=== PATIENT | male | born 1945 | race Caucasian/White ===

== ENCOUNTER 2019-06-15 05:56 | Day surgery (SDC) | payer MEDICARE, OTHER, SELFPAY ==
[2019-06-07 12:00] VITALS: BMI 36.3
[2019-06-15] VITALS (10 sets, daily range): BP systolic 100–130; BP diastolic 50–68; PULSE 57–62; RESP 12–19; TEMP 35.9–36.9; O2SAT 94–98; BMI 36.3
[2019-06-15] MEDS: ACETAMINOPHEN 325 MG TABLET 975 MG PO (07:04)
[2019-06-15] MEDS: CELECOXIB 200 MG CAPSULE PO (07:04)
[2019-06-15] MEDS: VANCOMYCIN 1,000 MG/200 ML PIGGYBACK 200 MG IV (07:04)
[2019-06-15] MEDS: LACTATED RINGERS 1,000 ML 42 ML IV (07:10)
--- NOTE | 2019-06-15 07:45 | PM.PREOP ---
Pre-operative Note Interval Note History & Physical reviewed/Exam performed by Physician: Yes Changes to H&P: No
--- NOTE | 2019-06-15 07:45 | PM.OP.1 ---
Operative Date/Time/Diagnoses Date of procedure: 06/15/19 Time of procedure: 07:59 Pre-op diagnosis: left knee OA Post-op diagnosis: same Procedure & Clinicians Procedure: Left knee medial unicompartment arthroplasty Same procedure as scheduled: Yes Indications: The patient has had progressively worsening left knee pain with radiographic changes consistent with arthritis. Non-operative management has failed and the patient has requested medial unicompartment knee replacement. The risks, benefits and alternatives to surgery were discussed with the patient prior to proceeding. Risks discussed included, but were not limited to, failure to relieve pain, stiffness, infection, nerve damage, deep venous thrombosis, pulmonary embolism, stroke, coma, heart attack, permanent paralysis and , as well as the potential need for eventual revision of the prosthetic. Surgeon: Felisa Nugent Court Transcriber: Rex Molina Anesthesia Type: General and Peripheral nerve block Operative Notes Findings: Severe medial unicompartment arthritis, adequate stability Closure Type: primary Specimen(s): none sent Prosthetic devices, grafts, tissues, transplants, or devices: Nugent and Nephew ZUK size D femur, size 3 tibia, +8 poly Estimated Blood Loss (mL): 250 Blood products transfused: none Tourniquet time (min): 15 Procedure in detail: The patient was seen in the pre-operative area, where the left knee was identified as the operative site and this was marked with my initials. The patient received pre-operative antibiotics, and was taken to the operating room and placed on the operative table in the supine position. After satisfactory anesthesia, a wildlife enforcement major out was performed. The left leg was encircled with a tourniquet about the proximal thigh, and the leg was prepared from the toes to the tourniquet with ChloroPrep in the usual fashion and draped through sterile drapes. The leg was elevated and exsanguinated with Eschmark bandage and the tourniquet inflated to [250] mmHg pressure. The knee was approached through an approximately 10 cm incision medial parapatella incision and carried into the knee through a medial parapatellar arthrotomy. The osteophytes and medial meniscus were removed. Next, a small amount of the anterior tibial boss was carefully resected with a saw. The tourniquet was functioning as a venous tourniquet and so was deflated. There was minimal bleeding. The guide was placed along the medial joint line. It was meticulously adjusted to make sure there was appropriate slope that it was at the joint line and then was pinned to the tibia and the femur. The medial femoral condylar cut was made in extension. The tibial cut was made in flexion. The bone was meticulously irrigated with normal saline. Small amount of additional meniscus was resected posterior capsule was checked and injected with Marcaine. The extension gap was carefully checked with an 8 mm gap laboratory veterinarian was noted that it fit well. A small number of additional osteophytes were resected. The tibia was a size [3]. It was noted that it fit without overhang. The femur was sized and it was noted to be a [D]. The appropriate cutting guide was pinned into place and carefully positioned on the femoral condyle. Drill holes were placed. The tibia was pinned into place and drill holes were made. Trial reduction with the appropriate poly showed full range of motion and good stability at 0, 45. and 90? with normal tracking of the components without edge loading. The bone was meticulously irrigated and dried. Additional Marcaine was injected. The posterior capsule was injected with 0.25% Marcaine mixed with 20 ml Exparel for post-operative pain control. The remainder of this mixture was injected into the capsule and subcutaneous tissues during cement curing. Range of motion was [0-130], with good stability throughout the range. The trials were then remove. The cement was as applied and the final prosthetics placed. Excess cement was removed during and after cement curing. A brief medial compartment Betadine soak was performed. After confirming there was no extruded cement posteriorly, the final tibial insert was placed. The knee was copiously irrigated and the tourniquet deflated. Hemostasis was obtained. The capsule was closed with interrupted vicryl. The subcutaneous tissue was closed with barbed sutures. The skin with a running 3-0 V-Lock suture and surgical glue. An Aquacel Ag dressing was applied and the patient was taken to recovery having tolerated the procedure well. Complications: none Post-operative Condition: stable Disposition: Acute Care Plan for aftercare: The patient will be maintained on a standard medial Uni knee replacement protocol with weight bearing as tolerated. The patient will receive aspirin and sequential compression devices for DVT prophylaxis. The patient will be discharged home when safe for the home environment.
[2019-06-15] MEDS: CEFAZOLIN 2 GM/100 ML FROZ.PIGGY IV (07:59)
--- NOTE | 2019-06-15 08:01 | SUR.PREOP ---
Block start time [0746] . Monitoring initiated and maintained throughout procedure. Oxygen and medications given by anesthesiologist. Patient remained stable throughout procedure, no adverse reactions noted. Block end time [0755].
--- NOTE | 2019-06-15 08:33 | SUR.OPER ---
Supine on padded OR bed, head on pillow, arms secured on padded arm boards at <90 degrees abduction, legs uncrossed, safety belt at thigh, tape over blanket over lower legs.
[2019-06-15] MEDS: BUPIVACAINE LIPOSOME 266 MG/20 ML VIAL INJ (08:39)
[2019-06-15] MEDS: BUPIVACAINE 0.25% W/ EPI 30 ML VIAL INJ (08:39)
--- NOTE | 2019-06-15 09:34 | P.PCN_ITS ---
Procedures Date/Time Date of procedure: 06/15/19 Time of procedure: 07:45 General Procedure description: Ultrasound guided adductor canal nerve block for post op pain control after left uni medial knee arthroplasty by Dr. Nugent. Risk and rosita efits of procedure discussed with patient. ASA monitoring applied to patient. O2 given via nasal cannula. 1 mg Versed and 50 mcg fentanyl given for procedural sedation. Skin site was prepped with chlorhexidine and allowed to fully dry. Sterile gloves, mask, hat and probe cover were used to maintain sterility. 2% lidocaine and 30ga needle was used to make a small skin wheal at needle insertion site. Under ultrasound guidance, a 21ga 100mm Pajunk needle was directed into the adductor canal near femoral artery and saphenous nerve at the level of mid thigh. Patient reported no parasthesias. After negative aspiration, 20 mL 0.5% ropivicaine and 10mg dexamethasone were injected around saphenous ne rve. Patient tolerated procedure well.
[2019-06-15] MEDS: ONDANSETRON 4 MG/2 ML INJ IV (10:06)
--- NOTE | 2019-06-15 10:11 | SUR.PHASEI ---
Patient able to move toes, lift leg. Gave Zofran for c/o nausea.
[2019-06-15] MEDS: OXYCODONE/ACETAMINOPHEN 5/325 TABLET 1 TAB PO (10:36)
--- NOTE | 2019-06-15 10:43 | DI.RAD.S_ITS ---
PROCEDURE: XR KNEE LT 1TO2V INDICATIONS: post uni knee TECHNIQUE: 2 view(s) of the knee acquired. COMPARISON: None. FINDINGS: Bones: Patient is status post left knee joint medial unicompartmental hemiarthroplasty. Hardware components are in expected positions. Visualized bony structures are intact. Soft tissues: Overlying postoperative changes are noted. IMPRESSION: Normal alignment after a left medial unicompartmental hemiarthroplasty. Dictated by: Pedro Miller M.D. on 06/15/2019 at 11:19 Approved by: Pedro Miller M.D. on 06/15/2019 at 11:19
[2019-06-15] MEDS: OXYCODONE IR 5 MG TABLET PO (11:35)
== END 2019-06-15 12:01 | disposition home or self-care (01) ==
PROVIDERS: PCP Internal Medicine; Visit Provider Orthopaedic Surgery
PROC: (CPT 27446; principal; 2019-06-15 07:45)
DX: M17.12 Unilateral primary osteoarthritis, left knee (principal); G89.18 Other acute postprocedural pain; G47.33 Obstructive sleep apnea (adult) (pediatric)
CPT/HCPCS: 27446; 64450; 73560; C1776; C9290; J0690; J1100; J1885; J2250; J2405; J2704; J3010

== ENCOUNTER → 2020-02-20 16:36 | Outpatient (CLI) | payer MEDICARE, OTHER, SELFPAY ==
[2020-02-20 17:10] LABS: Add Manual Diff / Slide Review NO; Basophils Absolute Auto 0 /uL (0-100); Basophils Percent Auto 0.6 % (0-2); Eosinophils Absolute Auto 100 /uL (0-450); Eosinophils Percent Auto 1.8 % (2-4); Hematocrit 35.7 % (41-53); Hemoglobin 12.3 g/dL (13.5-17.5); Lymphocytes Absolute Auto 1200 /uL (1100-4500); Lymphocytes Percent Auto 20.1 % (25-40); Mean Corpuscular HGB Conc 34.4 % (30-36); Mean Corpuscular Hemoglobin 34.1 PG (26-34); Monocytes Absolute Auto 700 /uL (0-900); Monocytes Percent Auto 11.7 % (3-14); Neutrophils Absolute Auto 4100 /uL (1500-7000); Neutrophils Percent Auto 65.8 % (50-75); Platelet Count 171 X10^3/uL (150-400); Red Blood Cell Count 3.61 X10^6/uL (4.5-5.9); Red Cell Distribution Width 14.6 % (11.6-14.8); White Blood Cell Count 6.2 X10^3/uL (4.5-11.0)
[2020-02-20 17:18] LABS: Hemoglobin A1C% w Est Avg Glu 5.6 % (4.0-6.0)
[2020-02-20 17:31] LABS: BUN Creatinine Ratio 20.2 (6-22); Blood Urea Nitrogen 33 mg/dL (9-20); Calcium 8.9 mg/dL (8.4-10.2); Carbon Dioxide 27 mmol/L (22-32); Chloride 104 mmol/L (98-107); Estimated Glomerular Filt Rate 41.3 mL/min (>60); Glucose 96 mg/dL (80-110); HEMOLYSIS < 15 (0-50); Potassium 4.4 mmol/L (3.4-5.1); Sodium 138 mmol/L (137-145)
== END ==
PROVIDERS: PCP Internal Medicine; Referring Provider Orthopaedic Surgery; Visit Provider Orthopaedic Surgery
DX: Z01.818 Encounter for other preprocedural examination (principal); Z01.812 Encounter for preprocedural laboratory examination; R73.9 Hyperglycemia, unspecified
CPT/HCPCS: 36415; 80048; 83036; 85025; 93005

== ENCOUNTER → 2020-02-25 13:45 | Outpatient (CLI) | payer MEDICARE, OTHER, SELFPAY ==
[2020-02-26 13:47] LABS: COVID19 Sendout Not Detected (Not Detect)
== END ==
PROVIDERS: PCP Internal Medicine; Visit Provider Physician Assistant
DX: Z11.59 Encounter for screening for other viral diseases (principal)
CPT/HCPCS: 87635

== ENCOUNTER → 2020-02-27 06:37 | Outpatient (CLI) | payer MEDICARE, OTHER, SELFPAY ==
--- NOTE | 2020-02-27 07:12 | DI.ECHO.S_ITS ---
Echocardiogram Report + + :Name: MAGALI OSEI Study Date: 02/27/2020 Height: 66 in : :[facility] Weight: 204 lb : : Gender: Male BSA: 2.0 m2 : :: 1945 Age: 74 yrs BP: 100/60 mmHg: :Reason For Study: AORTIC STENOSIS : :Ordering Physician: LAUREN, : :CARLOS ALBERTO Performed By: Karla Diez : :Referring: CARLOS ALBERTO AGUILAR : + + Interpretation Summary The left ventricular ejection fraction is normal. There are no focal wall motion abnormalities. The right ventricle is normal in size and function. The aortic valve is moderately calcified. The peak aortic velocity is 3.02 m/sec. The aortic valve mean gradient is 22 mmHg. There is moderate aortic stenosis. -Compared to the prior echo, the aortic stenosis has progressed but is in moderate range. Procedure: A two-dimensional transthoracic echocardiogram with color flow and Doppler was performed. The study quality was technically adequate. Comparison is made with the echocardiogram of 11/21/2018. The patient was in sinus bradycardia with heart rates between 51-60 bpm during the exam. Left Ventricle: The left ventricle is normal in size and wall thickness. The ejection fraction is estimated to be 55-60%. The left ventricular ejection fraction is normal. There are no focal wall motion abnormalities. The tissue Dopplers were not measured. Right Ventricle: The right ventricle is normal in size and function. Atria: The left atrial size is normal. Right atrial size is normal. There is no Doppler evidence for an interatrial shunt. Mitral Valve: The mitral valve is normal in structure and function. There is mild mitral regurgitation. Aortic Valve: The aortic valve is moderately calcified. The aortic valve is trileaflet. The peak aortic velocity is 3.02 m/sec. The aortic valve mean gradient is 22 mmHg. The calculated aortic valve area is 1.2 cm2. There is moderate aortic stenosis. The peak aortic velocity on the previous exam was 2 m/sec. There is mild aortic regurgitation. Tricuspid Valve: The tricuspid valve leaflets are thin and pliable. The right ventricular systolic pressure is estimated to be at least 34 mmHg based on an estimated right atrial pressure of 3 mm Hg. There is mild tricuspid regurgitation. Pulmonic Valve: The pulmonic valve leaflets are thin and pliable; valve motion is normal. There is mild pulmonic regurgitation. Great Vessels: The aortic root is normal size. The ascending aorta could not be visualized. The IVC is of normal diameter and collapses greater than 50% with a sniff. This suggests a low right atrial pressure of 3 mm Hg. Pericardium/ Pleura There is no pericardial effusion. There is no pleural effusion. MMode/2D Measurements & Calculations LVIDd: 4.9 cm LVOT diam: 2.3 cm LVIDs: 3.4 cm Ao root diam: 2.9 cm FS: 30.7 % Ao Arch Diam (Prox Trans): 2.8 cm EPSS: 1.5 cm IVSd: 1.1 cm LVPWd: 0.99 cm LV sullivan. diameter/BSA (cm/m^2): 2.4 LV sys. diameter/BSA (cm/m^2): 1.7 LA A2 area: 18.8 cm2 RA long axis: 5.0 cm LA A4 area: 19.3 cm2 RA area: 16.5 cm2 LA length (vol): 5.1 cm RA vol: 46.0 ml LA vol: 60.3 ml RA : 22.8 ml/m2 LA vol index: 29.9 ml/m2 IVC diam: 1.6 cm RVD1 (basal): 3.8 cm TAPSE: 1.8 cm Doppler Measurements & Calculations Ao V2 max: 302.3 cm/sec LVOT Max Zac: 90.3 cm/sec Ao V2 mean: 223.0 cm/sec LV V1 max P.3 mmHg Ao max P.5 mmHg LV V1 VTI: 26.0 cm Ao mean P.9 mmHg SANDY(I,D): 1.4 cm2 Ao V2 VTI: 77.0 cm SANDY(V,D): 1.2 cm2 sev ratio: 0.34 SANDY indexed to BSA (cm^2/m^2): 0.69 AI P1/2t: 634.0 msec AI dec slope: 154.6 cm/sec2 MV E max zac: 121.4 cm/sec TR max zac: 264.6 cm/sec MV A max zac: 92.5 cm/sec TR max P.1 mmHg MV E/A: 1.3 PA V2 max: 84.1 cm/sec MV dec time: 0.22 sec PA V2 mean: 60.6 cm/sec PA mean P.7 mmHg PA pr(Accel): 24.2 mmHg SV([facility]): 107.9 ml Electronically signed by: Carlos Alberto Aguilar M.D. on Reading Physician:02/28/2020 12:03 PM
== END ==
PROVIDERS: PCP Internal Medicine; Referring Provider Hospitalist; Visit Provider Hospitalist
DX: I08.3 Combined rheumatic disorders of mitral, aortic and tricuspid valves (principal)
CPT/HCPCS: 93306

== ENCOUNTER → 2020-03-05 10:37 | Outpatient (CLI) | payer MEDICARE, OTHER, SELFPAY ==
[2020-03-06 19:17] LABS: COVID19 Sendout Not Detected (Not Detect)
== END ==
PROVIDERS: PCP Internal Medicine; Visit Provider Physician Assistant
DX: Z11.59 Encounter for screening for other viral diseases (principal)
CPT/HCPCS: 87635

== ENCOUNTER 2020-03-08 06:10 | Inpatient (IN) | payer MEDICARE, OTHER, SELFPAY ==
[2020-03-04 12:56] VITALS: BMI 35.3
[2020-03-08] VITALS (16 sets, daily range): BP systolic 92–139; BP diastolic 53–73; PULSE 52–82; RESP 10–27; TEMP 35.5–36.3; O2SAT 91–98; BMI 33.4
[2020-03-08] MEDS: LACTATED RINGERS 1,000 ML 42 ML IV ×2 (07:18→10:19)
[2020-03-08] MEDS: CEFAZOLIN 2 GM/100 ML FROZ.PIGGY IV ×2 (07:50→16:41)
--- NOTE | 2020-03-08 07:52 | PM.PREOP ---
Pre-operative Note COVID-19 COVID-19 status: Negative Result date/Date tested (Pos, Neg/Pending): 03/06/20 Interval Note History & Physical reviewed/Exam performed by Physician: Yes Changes to H&P: No
--- NOTE | 2020-03-08 08:00 | DI.RAD.S_ITS ---
PROCEDURE: XR LUMBAR SPINE 2-3V INDICATIONS: L3-4 TLIF TECHNIQUE: 2 views of the lumbar spine were acquired. COMPARISON: [facility], , L-SPINE 2-3 VIEWS, 09/20/2015, 13:35. FINDINGS: Bones: 5 [id number] vertebrae are present. There is normal bony alignment maintained by bilateral transverse pedicle screws and vertical fixation rods crossing from L3 through S1 with interbody disc cage prosthesis devices at the 3 intervening disc levels. No vertebral body compression fractures. No suspicious bony lesions. Soft tissues: Overlying bowel gas pattern is normal. No suspicious soft tissue calcifications. IMPRESSION: Normal alignment established after spinal fusion from L3 through S1, in this patient with prior spine fusion from L4 through S1. Dictated by: Pedro Miller M.D. on 03/08/2020 at 15:20 Approved by: Pedro Miller M.D. on 03/08/2020 at 15:22
--- NOTE | 2020-03-08 08:39 | SUR.OPER ---
Prone on spine table, head in foam head support, padded chest and pelvic supports, gel pad at knees, lower legs supported by pillows; nipples, genitalia and toes free of pressure, arms secured on foam padded arm boards at <90 degrees abduction. Tape over blanket at thigh secured to table.
[2020-03-08] MEDS: BUPIVACAINE LIPOSOME 266 MG/20 ML VIAL INJ (08:49)
[2020-03-08] MEDS: BUPIVACAINE 0.25% W/ EPI 30 ML VIAL 60 ML INJ (08:49)
--- NOTE | 2020-03-08 11:25 | P.OP_ITS ---
Operative Date/Time/Diagnoses Date of procedure: 03/08/20 Time of procedure: 08:12 Pre-op diagnosis: 1. L3-4, L4-5, L5-S1 spinal stenosis 2. Hx of L4-5, L5-S1 fusion with instrumentation 3. L3-4, L4-5, L5-S1 spondylosis with radiculopathy Post-op diagnosis: same Procedure & Clinicians Procedure: 1. L3-4 Postero-lateral and posterior interbody fusion 2. L3-4 interbody cage placement. 3. L3-4 decompressive laminectomy with bilateral facetecomies 4. L3-4 L4-5 L5-S1 Posterior segmental instrumentation 5. L4-5 L5-S1 posterior segmental hardware removal 6. L4-5 L5-S1 exploration of fusion with right hemilaminectomy 7. L4-5 L5-S1 posterolateral fusion 8. [place] of bone marrow from iliac crest 9. Utilization of microsurgical technique and operating microscope Same procedure as scheduled: Yes Indications: Patient has been having chronic back pain and worsening lumbar radiculopathy. Patient failed multiple conservative management with worsening pain weakness and numbness in her lower extremity. Patient has been having difficulty performing activity of daily living. After discussing risks benefits of treatment options, patient elected proceed with surgery. Surgeon: Camille Tolentino Crop Production Advisor: Kristyn Gaspar'Brien Click Yes if Unassisted: No Anesthesia Type: General Operative Notes Closure Type: primary Specimen(s): none sent Prosthetic devices, grafts, tissues, transplants, or devices: Globus revolve screws, Rise cage Applied: catheter Estimated Blood Loss (mL): 100 Blood products transfused: none Procedure in detail: Patient was seen in the preoperative area. Risks and benefits of the surgery was discussed with the patient. Informed consent was obtained from the patient and placed in the chart. Surgical site was marked. Patient was taken to the operative room. General anesthesia was administered. Prophylactic antibiotic was given to the patient less than 30 min before the incision was made. Patient was placed into a prone position on the Pascual table. Patient's back was then prepped and draped in the sterile fashion. Time- out was performed at this time. Using patient's previous scar incision was made over the L3-4 L4-5 L5-S1 interval on the right side. Fascia was incised in line with skin incision. Patient's previously placed hardware over the L4-5 L5-S1 level was identified by dissecting down to the level the hardware using a Bovie and a Smith. The locking caps which was removed using globus screwdriver. The locking teresa was then removed from the tulips of the pedicle screws using a Roc. The pedicle screws were then removed using the screwdriver. The screws were found to be loose in L4 and S1 level. The Globus and MARS retractors was then placed into the wound and docked onto the L3 lamina using C-arm guidance. Using microsurgical technique and operating microscope a laminectomy facetectomy was performed by removing the L3 lamina and the L3-4 facet. The disc space at L3-4 level was identified next. And a total diskectomy was performed at L3-4 level. The endplates were decorticated using a rasp and shaver. Patient was found have severe central and neural foramen stenosis which was fully decompressed after the laminectomy and facetectomy was completed. The total diskectomy and decortication was performed at L3-4 level in order to to accomplish a L3-4 fusion. The local bone from the laminectomy and facetectomy was saved for local bone grafting. After the total diskectomy and decortication was completed, Trifecta bone graft material was combined with local bone that was harvested earlier. At this time, a separate skin is incision was made over the iliac crest. A Jamshidi needle was inserted into the iliac crest through a separate skin incision. 5 cc of bone marrow aspiration was obtained through the separate skin incision using a Jamshidi needle from the iliac crest. The bone marrow aspiration was combined with local bone and the Trifecta bone grafting material. The bone grafting material was placed into the L3-4 interbody space along with a expandable cage. The cage was expanded to its maximum height using the torque limiting screwdriver. The MARs retractor was redirected over the L2-3 interval. Using microsurgical technique and operative microscope, a L2 hemilaminectomy was performed using a Kerrison rongeur to decompress the lateral recess. The neural foramen was palpated after the hemilaminectomy was completed. The neural foramen was patent after the hemilaminectomy was completed. At this time a mirror image incision was made on the left side. The fascia was incised in line with the skin incision. Patient's previously placed hardware on the left side was then removed in the same fashion as it was on the right side. The hardware was also found to be loose at L4 and S1 level. The fusion mass on the left side was exposed by performing a left-sided hemilaminectomy at L4-5 L5- S1 level. The hemilaminectomy was performed using the Kerrison rongeur to undercut the lamina as well removing additional epidural scar tissue for purpose of decompressing the epidural space. The fusion mass was explored and was found have visible motion indicating pseudoarthrosis at both L4-5 L5-S1 level. Globus MARS retractor was inserted and docked onto the L3-4 L4-5 L5-S1 posterolateral gutter. Using the power drill, posterior-lateral decortication was performed at L3-4-L4-5 L5-S1 level until bleeding cortical bone was identified. The remaining bone grafting material was placed into the L3-4-L4-5 L5-S1 posterior lateral gutter he order to accomplish posterolateral fusion at the L3-4 L4-5 L5-S1 level. Using the double C-arm technique, pedicle screws were placed into the L3-L4 L5 and S1 pedicles bilaterally. This was done by placing the Jamshidi needle into the pedicles, then placing the guidewires over the Jamshidi needle, and finally placing the cannulated screws over the guidewires bilaterally. After the pedicle screws were placed, 2 titanium rods was locked into the heads of the pedicle screws using locking caps and torque limiting screwdriver. Larger size pedicle screws were placed into the L4 and S1 pedicles bilaterally. All screws placement had good purchase. After all the hardware was placed, and confirmed with AP and lateral C-arm imaging, the wound was then irrigated with sterile normal saline and packed with Ray-Jacky gauze for 3 min to accomplish hemostasis. After the gauze was removed the deep fascia was closed with #1 Vicryl suture. The subcutaneous layer was closed with 2-0 Vicryl. The skin was closed with skin michelle. Patient tolerated the procedure well. There were no complications. Complications: none Post-operative Condition: stable Disposition: PACU Plan for aftercare: Admit to inpatient hospital
--- NOTE | 2020-03-08 12:02 | SUR.PHASEI ---
Art line removed in PACU per protocol and physician order.
[2020-03-08] MEDS: HYDROCODONE/ACET 5/325 TABLET 1 TAB PO (12:06)
[2020-03-08] MEDS: SODIUM CHLORIDE 0.9% 1,000 ML 100 ML IV (13:02)
--- NOTE | 2020-03-08 13:52 | PC.NURSE ---
Day shift note: Received patient from PACU, awake, alert, and pleasant. Placed on O2 on arrival at 2L via, NS, due to sats 88-89%. Initiated IVF, placed SCDs, and IS teaching done. Oriented to room, environment, and plan of care. Discussed importance of mobility precautions. High risk precautions initiated. Call light within reach.
--- NOTE | 2020-03-08 15:54 | PT.IIE ---
Current Diagnoses Spondylolisthesis, lumbar region (03/08/20) Spinal stenosis, lumbar region without neurogenic claudication (03/08/20) Other mechanical complication of other internal orthopedic devices, implants and grafts, initial encounter (03/08/20) Arthrodesis status (03/08/20) Surgery Performed Operation Date: 03/08/20 07:45 Actual Procedures p L3-4 TLIF,L4-S1 lumbar HWR,exploration of fusion,L3-S1 PSF with instrumentation,L2-3 hemilaminectomy - Camille Tolentino MD Surgical History (Last Updated 03/04/20 @ 13:15 by Florence Golden RN) H/O vasectomy (Acute) History of lumbar spinal fusion (Acute 09/2015) Hx of appendectomy (Acute) Hx of cardiac cath (Acute) Hx of heart artery stent (Acute) S/P CABG x 4 (Acute 03/1997) S/P left unicompartmental knee replacement (Acute 06/15/19) S/P right unicompartmental knee replacement (Acute 10/29/16) Medical History (Last Updated 06/07/19 @ 13:25 by Florence Golden RN) CAD (coronary artery disease) (Acute) Colon polyps (Acute) Diverticulosis (Acute) History of angina (Acute) HLD (hyperlipidemia) (Acute) HTN (hypertension) (Acute) Ischemic heart disease (Acute) Osteoarthritis (Acute) Pneumonia (Acute) Right arm fracture (Acute ~1979) Sleep apnea (Acute) Physical Therapy Inpatient Evaluation/Re-Eval M1 PT/OT-IP Prior Functional Status Start: 03/08/20 16:48 Freq: NEEDED Status: Active Protocol: Document 03/08/20 15:54 AB (Rec: 03/08/20 17:28 AB [id number]) Medical Review Prior Functional Status Medical History Reviewed Yes Communication able to make needs known Mobility and Gait pt stated that he is independent with all mobilities and ambulation without AD Social History Household Members spouse,family Living Arrangements House Number of Floors (Floors) One Floor Number of Stairs To Enter/Railing? 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 Additional Social History Comment pt works as a mechanic helper M2 PT-IP Current Condition Start: 03/08/20 16:48 Freq: NEEDED Status: Active Protocol: Document 03/08/20 15:54 AB (Rec: 03/08/20 17:28 AB [id number]) Physical Therapy Current Condition Current Condition Evaluation Date 03/08/20 Treatment Diagnosis L3-S1 fusion; difficulty in walking Onset Date 03/08/20 Precautions Lumbar Precautions Log Roll,No Twisting,Limit Bending,Lifting Restriction of 10 lbs,Gait Belt above Incisional Area M3 PT-IP Subjective Start: 03/08/20 16:48 Freq: NEEDED Status: Active Protocol: Document 03/08/20 15:54 AB (Rec: 03/08/20 17:28 AB [id number]) Subjective Physical Therapy Visit Type Type Initial Evaluation Visit Start Time 15:54 Visit Stop Time 16:35 Total Visit Minutes 41 Number of FINISH MOLDER Visits 0 Physical Therapy Visit Comments Patient Comments pt is agreeable to do PT Therapy Pain Assessment Pain When Pain Assessed At Rest Pain Present Pain Present Pain Reported Location Lower Back Intensity 4 Scale Used Numeric (0 - 10) Pain Behaviors Guarding Pain Management Techniques Apply Cold,Distraction, Modification of Treatment, Timing of Activity with Medications M4 PT-IP Mobility and Gait Start: 03/08/20 16:48 Freq: NEEDED Status: Active Protocol: Document 03/08/20 15:54 AB (Rec: 03/08/20 17:28 AB [id number]) PT-Bed Mobility Assessment Rolling Type of Rolling Log Rolling Level of Assist Minimal Assistance Supine to Sit Supine to Sit Minimal Assistance PT-Transfer Assessment Sit to and From Stand Sit to and from Stand Minimal Assistance,1 Person Assistance,Use of Upper Extremities Equipment Transfer Assistive Device Bed Rail,Front Wheeled Walker Orthotic/Prosthetic Devices or Brace: No Transfers Transfer Destination Chair Transfer Technique ambulated using FWW Transfer Ability Level of Assist Minimal Assistance,1 Person Assistance,Use of Upper Extremities Comments Mobility Comments educated on back precautions and log roll bed mobility. pt completed supine to sit min A and max cues. pt was able to sit on EOB CGA. BP 108/61. O2 sat 94% at room air. pt completed sit to stand min A and cues and ambulated in room ~ 25 ft using FWW min A. pt agreed to sit up on chair. positioned on chair. call light and table placed within reach. Gait Assessment Gait Gait Assistance Required: Minimum Assistance Distance (Feet) 25 Able to Maintain Weight Bearing Status Yes During Gait Assistive Devices Assistive Device Gait Belt,Front Wheeled Walker Orthotic/Prosthetic Devices or Brace: No Gait Deviations General Gait Pattern Antalgic,Decreased Stride Length,Decreased Feet Clearance,Step-to Gait Factors Limiting Gait Function Factors Limiting Gait Function Decreased Activity Tolerance, Decreased Strength,Difficulty Following Directions,Limited Range of Motion,Pain,Poor Balance,Poor Safety Awareness Comments Gait Comments pt presnts with increase R knee flexion during ambulation requiring increase assistance with turning. PT-Balance Assessment Sitting Balance and Reactions Static Sitting Balance Ability Good Dynamic Sitting Balance Ability Good Standing Balance and Reactions Static Standing Balance Ability Fair Dynamic Standing Balance Ability Fair Device Used FWW M5 PT-IP Objective Assessments Start: 03/08/20 16:48 Freq: NEEDED Status: Active Protocol: Document 03/08/20 15:54 AB (Rec: 03/08/20 17:28 AB [id number]) Orientation Orientation/Cognition Level of Alertness Alert Orientation Name,Place,Situation Language Function Ability Hard of Hearing Safety Awareness Decreased Safety Awareness Memory Description Short Term Impaired Gross Range of Motion Lower Extremity ROM Assessment Within Functional Limits Strength Lower Extremity Strength Assessment Right Impaired Hip 3+/5 Knee 3+/5 Coordination Assessment Gross Coordination Gross Coordination WNL Sensation Assessment Sensation Gross Sensation WNL Muscle Tone Muscle Tone WNL Yes M6 PT-IP Treatment Start: 03/08/20 16:48 Freq: NEEDED Status: Active Protocol: Document 03/08/20 15:54 AB (Rec: 03/08/20 17:28 AB [id number]) Physical Therapy Treatment Education Education Provided Precautions,Weight Bearing Status,Post-Op Packet,Safety M7 PT-IP Assessment and Plan Start: 03/08/20 16:48 Freq: NEEDED Status: Active Protocol: Document 03/08/20 15:54 AB (Rec: 03/08/20 17:28 AB [id number]) PT Summary Assessment and Plan Potential Rehabilitation Potential Good Status of Condition at Evaluation Stable Summary Impairments Pain,ROM,Strength,Balance, Coordination,Cognition,Bed Mobility,Transfers,Gait, Activity Tolerance Assessment Summary pt requiring min A with mobility using FWW, presents with unsteady gait . pt plans to go home with spouse to assist him. will conduct caregiver training when appropriate as well as stair climbing training. will continue to assess progress. Goals Bed Mobility Goal Standby Assistance Transfer Goal Standby Assistance,Front Wheeled Walker Gait Goal Standby Assistance,Front Wheel Walker Gait Distance 200 Other Goals up/down 4 steps R rail ascending SBA Days to Meet Goals 5 Frequency of Treatment Frequency Of Treatment Twice a Day Treatment Plan Physical Therapy Treatment Plan Bed Mobility Training,Transfer Training,Gait Training, Therapeutic Exercise,Balance Retraining,Post Op Education, Discharge Planning,Hot or Cold Pack,Neuromuscular Re-ed, Coordination Retraining,Manual Therapy Other Recommendations and Next Treatment bed mobility log roll, Focus ambulation, caregiver training , stair training Recommendations To Nursing Amount of Assist Needed 1 Person Assist Discharge Recommendations PT Discharge Recommendations Home with Assistance Transportation Needs at Discharge Private Vehicle
[2020-03-08] MEDS: DOCUSATE 100 MG CAPSULE PO (20:36)
[2020-03-08] MEDS: AMLODIPINE 5 MG TABLET PO (20:36)
[2020-03-08] MEDS: RANOLAZINE 500 MG TAB.ER.12H 1000 MG PO (20:37)
[2020-03-08] MEDS: SENNOSIDES 8.6 MG TABLET 17.2 MG PO (20:37)
[2020-03-08] MEDS: METOPROLOL IR 25 MG TABLET PO (20:37)
[2020-03-08] MEDS: HYDROCODONE/ACET 5/325 TABLET 2 TAB PO (22:41)
[2020-03-08] MEDS: NITROGLYCERIN 0.4 MG SL TAB SL (23:26)
[2020-03-08] MEDS: NITROGLYCERIN 0.3 MG SL TAB 0.4 MG SL ×2 (23:31→23:38)
[2020-03-08 23:58] LABS: Creatine Kinase 1199 U/L (55-170)
[2020-03-09] VITALS: BP 130/68; PULSE 77; RESP 20; TEMP 36.2; O2SAT 95
[2020-03-09 00:14] LABS: CKMB % Relative Index 4.4 % (1.5-5.0)
[2020-03-09] MEDS: SODIUM CHLORIDE 0.9% 1,000 ML 100 ML IV (00:37)
--- NOTE | 2020-03-09 00:46 | P.CONS_ITS ---
History of Present Illness Consult details Date Patient Seen: 03/08/20 Time Patient Seen: 23:45 Chief complaint: Translaminar Interbody Fusion/Laminotomy Reason for consult: Chest pain Requesting provider: Eduardo Ernst Narrative: Clary Skelton is a 74-year-old male with a history of coronary artery disease, CABG in 1996, multiple PCTIs with stent placement developed chest pain in the evening tonight. He is currently patient of Dr. Triana, orthopedic surgery after having gone an L3-4 Postero-lateral and posterior interbody fusion on March 08, 2020. The patient stated that he developed chest pain 20 minutes after having taken a Vicodin. He is unable to take oxycodone due to an allergy. He stated it started midsternal, then radiated to his left arm and then to his neck and jaw. It took 3 nitros to resolve the pain and after the 3rd nitro glycerin and several minutes his pain was now rated as a 0. He denies diaphoresis, headache, chills or fever, nausea or vomiting, dysuria, diarrhea or constipation . He does state he has a murmur. He was evaluated by cardiology in August of this year and they were concerned about a reversible defect with complete ramus occlusion. In their notes they concluded that if he develops limiting angina to consider revascularization with the tazl[place] left circumflex artery though they stated that the targets were poor. He also had an echocardiogram at that time which indicated and EF of 55-60%. Patient states a strong family history of heart disease on both sides of his family. EKG was done and indicated possible left atrial enlargement with a left bundle branch block not seen on previous EKG done on 02/20/2020. Troponin was ordered and is positive at 0.210 with a total creatinine kinase of 1199 and a CK-MB of 2.9. Patient's temperature is 97.1?, blood pressure 130/68, heart rate 77, respiratory rate 20, at the time the vitals his pain intensity was 7, oxygen saturation 95% on room air, he weighs 88.2 kg with a BMI of 33.4. Meds Home Medications and Allergies Home Medications Medication Instructions Recorded Confirmed Type amlodipine [Norvasc] 5 mg PO BEDTIME #0 10/15/16 03/08/20 History aspirin 162 mg PO DAILY 06/07/19 03/08/20 History atorvastatin 80 mg PO DAILY 06/07/19 03/08/20 History isosorbide mononitrate 120 mg PO DAILY 06/07/19 03/08/20 History metoprolol tartrate 25 mg PO BID 06/07/19 03/08/20 History ranolazine [Ranexa] 1,000 mg PO BID 06/07/19 03/08/20 History Allergies Allergy/AdvReac Type Severity Reaction Status Date / Time ticlopidine [From TICLID] Allergy Severe RASH Verified 02/25/20 13:44 oxycodone Allergy Rash Verified 03/08/20 06:46 adhesive tape [ADHESIVE TAPE] AdvReac Severe SKIN PULLS Verified 02/25/20 13:44 OFF Review of Systems Review of Systems ROS: Yes All systems reviewed with the patient and are negative except as otherwise documented Exam Vital Signs (past 8 hours): - 03/08/20 17:58 03/08/20 20:51 03/09/20 00:00 Temperature 96.9 F L 97.1 F L Pulse Rate 67 69 77 Respiratory Rate 16 16 20 Blood Pressure 124/72 130/68 Pulse Oximetry 94 96 95 Oxygen Delivery Method Room Air Oxygen Flow Rate 0 Narrative Exam Narrative: Gen: Alert, oriented, well-developed 74 y.o. male, mildly anxious HEENT: normocephalic, atraumatic, conjunctiva clear, sclera non-icteric, oral mucosa pink and moist Neck: supple, full ROM, no JVD, trachea is midline Resp: Lungs CTA, non-labored breathing CV: RRR, no murmur or rubs detected Abd: soft, non-tender, normoactive BTs Skin: no lesions or rashes, dry and intact Neuro: Alert and oriented X 4 w/no focal deficits. Speech clear and coherent. Extremities: moves all 4 extremities, is ambulatory, negative Josh?s sign Psyche: normal mood and affect. Objective ECG Impression: Sinus rhythm with possible left atrial enlargement and a left bundle branch in the V1 V2 not seen on EKG of 02/20/2020. Labs Labs: Laboratory Results - last 24 hr 03/08/20 23:40 Total Creatine Kinase 1199 H CK-MB (CK-2) 52.90 H CK-MB (CK-2) Rel Index 4.4 Troponin I 0.210 H* Assessment & Plan Assessment & Plan narrative: Sandip Skelton is a 74-year-old male status post lumbar laminectomy who developed chest pain this evening. He does have an abnormal EKG and a troponin of 0.210. Given his postsurgical state it is not advisable to start a heparin drip. Chest pain, acute, likely ACS -Discussed case with Dr. Carson who recommends repeating a limited echo -Troponin is elevated at 0.210, CK 1199, and CK-MB at 52.9, repeat troponin at 0500 -Stated ASA 81 mg, have discussed w/Dr. Ernst who stated was okay to start tonight -Due to post-operative state, will be unable to heparinize or prescribe clopidogrel -Continue home dose of ranolazine 1000 mg bid -Continue home dose of isosorbide mononitrate 120 mg po daily -Will discuss results of echocardiogram and monitor labs Essential hypertension, chronic -Continue home dose of amlodipine 5 mg po at bedtime and metoprolol tartrate 25 mg po bid Hyperlipidemia, chronic -continue home dose of atorvastatin 80 mg po at bedtime Thank you for the opportunity to consult on your patient. We will do close fo llowup of your patient's ACS and coordinate with you in the morning.
[2020-03-09] MEDS: CEFAZOLIN 2 GM/100 ML FROZ.PIGGY IV (00:53)
--- NOTE | 2020-03-09 01:19 | DI.ECHO.S_ITS ---
[facility]---------+ [facility] +---------+ : : [address] : : [place], [place] : : : : [id number] : : : : Phone: [phone]---------+ Echocardiogram Report + + :Name: MAGALI OSEI Study Date: 03/09/2020 Height: 64 in : :[facility] Weight: 194 lb : : Gender: Male BSA: 1.9 m2 : :: 1945 Age: 74 yrs BP: 139/73 mmHg: :Reason For Study: CHEST PAIN, CAD : :Ordering Physician: : :CRISSISTDALY Performed By: Karla Diez : :Referring: ANGE JOY : + + Interpretation Summary This is a limited study for wall motion and LV systolic function. Normal sinus rhythm. Normal LV size, wall thickness, wall motion and LV systolic function. EF is 50-55%. Aortic valve leaflets are moderately thickened and calcified. There is moderate aortic stenosis. Compared to prior study 02/27/2020 no changes have occurred. Procedure: A two-dimensional transthoracic echocardiogram with color flow and Doppler was performed in limited views only. Comparison is made with the echocardiogram of 02/27/2020. The study quality was technically adequate. Left Ventricle: The left ventricle is normal in size and wall thickness. The ejection fraction is estimated to be 50-55%. Right Ventricle: The right ventricle is normal in size and function. Atria: The left atrium is mildly dilated. Right atrial size is normal. Aortic Valve: The aortic valve is moderately calcified. There is moderate aortic stenosis. The peak aortic velocity is 3.18 m/sec. The aortic valve mean gradient is 22 mmHg. The calculated aortic valve area is 1.1 cm2. Tricuspid Valve: There is trace tricuspid regurgitation. Pulmonary artery pressures cannot be estimated because of the lack of a measurable TR jet velocity. Pericardium/ Pleura There is no pericardial effusion. There is no pleural effusion. MMode/2D Measurements & Calculations LVIDd: 5.1 cm LVOT diam: 2.3 cm LVIDs: 3.8 cm FS: 26.4 % IVSd: 1.0 cm LVPWd: 0.69 cm LV sullivan. diameter/BSA (cm/m^2): 2.6 LV sys. diameter/BSA (cm/m^2): 2.0 LA A2 area: 23.4 cm2 RA long axis: 4.9 cm LA A4 area: 19.8 cm2 RA area: 16.2 cm2 LA length (vol): 5.2 cm RA vol: 45.8 ml LA vol: 76.4 ml RA : 23.7 ml/m2 LA vol index: 39.6 ml/m2 IVC diam: 1.6 cm RVD1 (basal): 3.7 cm TAPSE: 1.9 cm Doppler Measurements & Calculations Ao V2 max: 318.5 cm/sec LVOT Max Zurdo: 92.1 cm/sec Ao V2 mean: 221.6 cm/sec LV V1 max P.4 mmHg Ao max P.6 mmHg LV V1 VTI: 20.9 cm Ao mean P.4 mmHg SANDY(I,D): 1.1 cm2 Ao V2 VTI: 79.3 cm SANDY(V,D): 1.2 cm2 sev ratio: 0.26 ASNDY indexed to BSA (cm^2/m^2): 0.55 MV E max zurdo: 118.7 cm/sec SV(LVOT): 83.8 ml MV A max zurdo: 90.6 cm/sec MV E/A: 1.3 Med Peak E' Zurdo: 6.3 cm/sec E/E' med: 18.9 MV dec time: 0.19 sec Electronically signed by: Regina Dickinson M.D. on Reading Physician:03/09/2020 12:11 PM
[2020-03-09] MEDS: ASPIRIN EC 81 MG TABLET PO ×2 (01:36→09:35)
--- NOTE | 2020-03-09 04:21 | PC.NURSE ---
Addendum entered by Shabana Lorenz R.N. 03/09/20 07:01: Troponin increase to 1.02 YARD CALLER Josh informed Original Note: Pt reported substernal chest pain at start of shift. Reports pain at 8/10, radiating to his L arm and into my teeth. VSS. Pt was not diaphoretic nor reporting other symptoms. VSS. Order obtained for 0.4 mg SL nitro q 5 minutes X3. CP reduced from 8 to 4 and then to nearly gone, 1/2 of a point. Stat EKG found SR w/L BBB. BP remained stable throughout dosages of Nitro. After YARD CALLER consulted w/Cardiology, 81mg Aspirin was given. Pt continues to report none to very mild CP which does not radiate. Will continue to monitor.
[2020-03-09 04:50] VITALS: BP 116/60; PULSE 76; RESP 18; TEMP 36.6; O2SAT 94
[2020-03-09 06:27] LABS: Add Manual Diff / Slide Review NO; Basophils Absolute Auto 0 /uL (0-100); Eosinophils Absolute Auto 0 /uL (0-450); Hematocrit 31.4 % (41-53); Hemoglobin 10.6 g/dL (13.5-17.5); Lymphocytes Absolute Auto 700 /uL (1100-4500); Lymphocytes Percent Auto 5.1 % (25-40); Mean Corpuscular HGB Conc 33.8 % (30-36); Mean Corpuscular Hemoglobin 33.2 PG (26-34); Mean Corpuscular Volume 98.3 fL (80-100); Monocytes Absolute Auto 800 /uL (0-900); Monocytes Percent Auto 5.5 % (3-14); Neutrophils Absolute Auto 13000 /uL (1500-7000); Neutrophils Percent Auto 89.4 % (50-75); Platelet Count 193 X10^3/uL (150-400); Red Blood Cell Count 3.19 X10^6/uL (4.5-5.9); White Blood Cell Count 14.5 X10^3/uL (4.5-11.0)
[2020-03-09 06:43] LABS: BUN Creatinine Ratio 21.2 (6-22); Blood Urea Nitrogen 29 mg/dL (9-20); Calcium 8.4 mg/dL (8.4-10.2); Carbon Dioxide 28 mmol/L (22-32); Chloride 103 mmol/L (98-107); Creatine Kinase 1024 U/L (55-170); Estimated Glomerular Filt Rate 50.5 mL/min (>60); Glucose 127 mg/dL (80-110); HEMOLYSIS < 15 (0-50); Magnesium 2.1 mg/dL (1.6-2.3); Potassium 4.9 mmol/L (3.4-5.1); Sodium 136 mmol/L (137-145)
[2020-03-09 06:58] LABS: CKMB % Relative Index 3.9 % (1.5-5.0)
[2020-03-09 07:34] VITALS: BP 115/63; PULSE 69; RESP 19; TEMP 37.1; O2SAT 94
--- NOTE | 2020-03-09 08:59 | OT.IP.TRT ---
Current Diagnoses Spondylolisthesis, lumbar region (03/08/20) Spinal stenosis, lumbar region without neurogenic claudication (03/08/20) Other mechanical complication of other internal orthopedic devices, implants and grafts, initial encounter (03/08/20) Arthrodesis status (03/08/20) Surgery Performed Operation Date: 03/08/20 07:45 Actual Procedures p L3-4 TLIF,L4-S1 lumbar HWR,exploration of fusion,L3-S1 PSF with instrumentation,L2-3 hemilaminectomy - Camille Tolentino MD Occupational Therapy Treatment Note M3 OT- IP Subjective and Pain Start: 03/09/20 08:58 Freq: Status: Active Protocol: Document 03/09/20 08:59 CGR (Rec: 03/09/20 08:59 CGR [id number]) OT- Subjective Occupational Therapy Visit Type Type Administrative Note Notes Chart reviewed, pt with new R bundle branch block and increasing troponins. Will hold at this time.
[2020-03-09 09:08] VITALS: PULSE 65; RESP 16; O2SAT 93
--- NOTE | 2020-03-09 09:32 | PT-IP ANOTE ---
Per RN, pt inappropriate for PT this AM d/t receiving echo and troponin rising.
[2020-03-09] MEDS: ATORVASTATIN 20 MG TABLET 80 MG PO (09:35)
[2020-03-09] MEDS: DOCUSATE 100 MG CAPSULE PO (09:36)
[2020-03-09] MEDS: ISOSORBIDE MONONITRATE ER 30 MG TABLET 120 MG PO (09:36)
[2020-03-09] MEDS: METOPROLOL IR 25 MG TABLET PO (09:36)
[2020-03-09] MEDS: RANOLAZINE 500 MG TAB.ER.12H 1000 MG PO (09:37)
--- NOTE | 2020-03-09 11:04 | PM.PN.1 ---
Subjective Subjective Date Patient Seen: 03/09/20 Time Patient Seen: 11:04 Interval history: Patient is POD#1 s/p TLIF with Dr. Tolentino. He has history of coronary artery disease, CABG in 1996, multiple PCTIs with stent placement. Overnight he had complaints of radiating chest pain with new possible left atrial enlargement with a left bundle branch block on EKG. Troponin was ordered and is positive at 0.210 with a total creatinine kinase of 1199 and a CK-MB of 2.9. Repeat labs of Troponin 1.020, CK 1024 and CK-MB of 40.30. He is currently pending echo. He is being followed by medicine team who have been in consultation with his metal drill press operator Dr. Carson. His surgical pain has been well managed. He has mobilized about the room. Currently NPO. Dressing was changed prior to exam due to small amounts of shadow drainage on the left. Exam Vital Signs (past 8 hours): - 03/09/20 04:50 03/09/20 07:34 Temperature 97.9 F 98.7 F Pulse Rate 76 69 Respiratory Rate 18 19 Blood Pressure 116/60 115/63 Pulse Oximetry 94 94 Oxygen Delivery Method Room Air Oxygen Flow Rate 0 Narrative Exam Narrative: 74 year old male resting comfortably in bed. AAOx3. Dressing over lumbar spine is CDI. 5/5 BLE. Calves soft, compressible. Objective Labs Result Diagrams: 03/09/20 05:55 03/09/20 05:55 Labs: Laboratory Results - last 24 hr 03/08/20 03/09/20 03/09/20 23:40 05:55 05:55 WBC 14.5 H RBC 3.19 L Hgb 10.6 L Hct 31.4 L MCV 98.3 MCH 33.2 MCHC 33.8 RDW 14.0 Plt Count 193 Neut % (Auto) 89.4 H Lymph % (Auto) 5.1 L [place] % (Auto) 5.5 Eos % (Auto) 0.0 L Baso % (Auto) 0.0 Neut # (Auto) 76653 H Lymph # (Auto) 700 L [place] # (Auto) 800 Eos # (Auto) 0 Baso # (Auto) 0 Sodium 136 L Potassium 4.9 Chloride 103 Carbon Dioxide 28 BUN 29 H Creatinine 1.37 H Estimated GFR 50.5 L BUN/Creatinine Ratio 21.2 Glucose 127 H Calcium 8.4 Magnesium 2.1 Total Creatine Kinase 1199 H 1024 H CK-MB (CK-2) 52.90 H 40.30 H CK-MB (CK-2) Rel Index 4.4 3.9 Troponin I 0.210 H* 1.020 H* Assessment & Plan Assessment & Plan narrative: Patient's postoperative course complicated by ACS, pending echo. He is being followed by medicine team which we appreciate. In light of this may anticoagulate as deemed appropriate. May require transfer pending results of echo. Mobilize with PT once he is deemed medically stable to do so. Continue present pain management.
--- NOTE | 2020-03-09 11:06 | CM.DANOTE ---
Discharge Planning/Care Management CM Discharge Assessment Start: 03/09/20 11:05 Freq: Status: Active Protocol: Document 03/09/20 11:05 ITV (Rec: 03/09/20 11:06 ITV [id number]) Discharge Planning Assessment Advance Directives? Yes Advance Directives on File Yes History Provided By Medical Record Prior Living Arrangements House Household Members spouse,family Is patient alert and oriented? Yes Review Status In Process Pre-Anesthesia Assessment Start: 03/04/20 12:56 Freq: Status: Complete Protocol: Document 03/04/20 12:56 CAB (Rec: 03/04/20 13:36 CAB [id number]) Pre-Anesthesia Assessment Patient Information Reviewed Via Phone Assessment Assessment Completed With Spouse Comment Pt gave verbal authorization to speak w/ for PAC phone assessment Diagnostic Results EKG Comment Labs/EKG @ , COVID screen @ 03/05/20 Primary Care Provider Tony Espinal Seen Specialist in Last 12 Months Yes Specialist Seen Dam Operator,Orthopedist Primary Language Lat[place]ian Supply Chain Systems Manager Required No Height 162.56 cm Weight 93.44 kg Body Mass Index (BMI) 35.3 Hearing Ability Normal Visual Assist Glasses Dentition Type Teeth, Natural Present Barriers to Learning None Hx Anesthesia Reactions No: Untreated KARINA Hx Family Anesthesia Reaction No Hx Malignant Hyperthermia No Hx Blood Transfusions No Hx Blood Transfusion Reaction No Anesthesia Review Requested No alcohol intake former Smoking Status Never smoker Substance Use Type does not use Pain Present Pain Reported Musculoskeletal Symptoms Abnormal Gait,Back Pain, Difficulty Walking,Radiating Pain into Limb,Tingling History of Falling (Recent or History of No ) Patient is completely paralyzed or No completely immobile Mental Status Oriented to own ability Is patient on oxygen? No Does patient have LOPEZ/SOB No Hx Sleep Apnea Yes CPAP/BIPAP use prescribed not used Currently Taking a Beta Gm Yes: Metoprolol Can You Climb a Flight of Stairs Without Yes SOB Hx Chest Pain Yes: Stable angina Hx SOB No Hx Syncope or Dizziness No Anti-Coagulant Therapy Yes: ASA 162mg daily-to continue through dos per Cardiology Has a Dam Operator Yes: Dr. Edmonds-last visit 08/25/19 Cardiac Testing Yes: Echo @ 02/27/20 Hx Pacemaker/ICD No Pacemaker Rep Required? No Cardiac Clearance Received Yes Comment Cardiac records scanned to record Diet Type At Home Regular dysphagia No Urinary Catheter Present No Hx Urinary Self Catheterization No Diabetes Yes: Pre-diabetes Hx Drug Resistant Organism No Presence of External or Internal Medical Yes: Right knee, sternal wire( Devices CABG), lumbar hardware Have you had any close contact with No someone diagnosed with COVID-19? Marital Status Lives With spouse,family Prior Living Arrangements House Number of Floors (Floors) One Floor Support System Spouse Does the Patient Have Assistance After Yes Surgery Patient Discharge Plan Description Return Home Comment Pt advised 3-5 day length of stay per surgeon Feels Safe in Current Environment Yes Been Physically Hurt or Threatened By a No Person in Current Environment Do you have thoughts of harming yourself None or others? Are you currently considering suicide? No Do you have a plan to hurt yourself or No Plan others? Do You Have Any Spiritual Beliefs That No May Affect Your HC Choices? Do You Have Any Cultural Practices That No May Affect Your HC Choices? Who Can We Speak to About Patient's Care Family, friends Identifying Code for Release of Patient Declines to issue Information Health Care Proxy/Next of Kin Essence () Health Care Proxy or [phone] Emergency Contact Name Essence () Emergency Contact or [phone] Advance Directives? Yes Advance Directives on File Yes Power of Senior Risk Analyst Yes Power of Senior Risk Analyst Name Essence Skelton () Power of Senior Risk Analyst PAC Instructions Durable medical equipment, Medications to take/avoid, Nasal antibiotic,No ETOH/ petroleum product on skin DOS, NPO,Post-op transportation,Pre -surgical wash,Sensory aids, Sturdy shoes/comfortable clothes,Do not bring valuables and remove jewelry
--- NOTE | 2020-03-09 11:08 | CM.DANOTE ---
Addendum entered by Magaly Stearns LPN 03/09/20 13:41: Was just updated by Dr. Briones. She states pt was worsening and would be transferring to [facility] for higher level of cardiac care. She is working in coordination with RN coordinator Malena and is currently discussing the case with physician at [facility]. Original Note: Discharge Planning/Care Management DCP: assessment: Case received, EMR reviewed. Discussed in Team Rounds and then outside of pt's room during Team Bedside Rounds with consulting hospitalist Dr. Briones. Pt had just had ECHO. Pt is a 74 year old male who admitted yesterday for a scheduled spinal fusion surgery/lumbar Surgeon: Dr. Tolentino PT was able to see pt yesterday and said he was doing well at that time for a d/c to home setting with his Essence's supportive care. PCP: Tony Espinal Aligner Hospitalist team was consulted during the night when pt developed chest pain. Conferred with cardiology and workup is in process. PT/OT are now on hold. Dr. Briones stated that depending on what the tests showed pt might need to transfer for a higher level of cardiac care. Will be following as POC unfolds to assist with any d/c needs that may arise. At this point pt and his family are just waiting for some clarity on the POC going forward. CM Discharge Assessment Start: 03/09/20 11:05 Freq: Status: Active Protocol: Document 03/09/20 11:05 ITV (Rec: 03/09/20 11:06 ITV [id number]) Discharge Planning Assessment Advance Directives? Yes Advance Directives on File Yes History Provided By Medical Record Prior Living Arrangements House Household Members spouse,family Is patient alert and oriented? Yes Review Status In Process Pre-Anesthesia Assessment Start: 03/04/20 12:56 Freq: Status: Complete Protocol: Document 03/04/20 12:56 CAB (Rec: 03/04/20 13:36 CAB [id number]) Pre-Anesthesia Assessment Patient Information Reviewed Via Phone Assessment Assessment Completed With Spouse Comment Pt gave verbal authorization to speak w/ for PAC phone assessment Diagnostic Results EKG Comment Labs/EKG @ [facility], COVID screen @ [facility] 03/05/20 Primary Care Provider Tony Espinal Seen Specialist in Last 12 Months Yes Specialist Seen Aligner,Orthopedist Primary Language Romanian Tier Lift Truck Operator Required No Height 162.56 cm Weight 93.44 kg Body Mass Index (BMI) 35.3 Hearing Ability Normal Visual Assist Glasses Dentition Type Teeth, Natural Present Barriers to Learning None Hx Anesthesia Reactions No: Untreated KARINA Hx Family Anesthesia Reaction No Hx Malignant Hyperthermia No Hx Blood Transfusions No Hx Blood Transfusion Reaction No Anesthesia Review Requested No alcohol intake former Smoking Status Never smoker Substance Use Type does not use Pain Present Pain Reported Musculoskeletal Symptoms Abnormal Gait,Back Pain, Difficulty Walking,Radiating Pain into Limb,Tingling History of Falling (Recent or History of No ) Patient is completely paralyzed or No completely immobile Mental Status Oriented to own ability Is patient on oxygen? No Does patient have LOPEZ/SOB No Hx Sleep Apnea Yes CPAP/BIPAP use prescribed not used Currently Taking a Beta Gm Yes: Metoprolol Can You Climb a Flight of Stairs Without Yes SOB Hx Chest Pain Yes: Stable angina Hx SOB No Hx Syncope or Dizziness No Anti-Coagulant Therapy Yes: ASA 162mg daily-to continue through dos per Cardiology Has a Aligner Yes: Dr. Edmonds-last visit 08/25/19 Cardiac Testing Yes: Echo @ [facility] 02/27/20 Hx Pacemaker/ICD No Pacemaker Rep Required? No Cardiac Clearance Received Yes Comment Cardiac records scanned to record Diet Type At Home Regular dysphagia No Urinary Catheter Present No Hx Urinary Self Catheterization No Diabetes Yes: Pre-diabetes Hx Drug Resistant Organism No Presence of External or Internal Medical Yes: Right knee, sternal wire( Devices CABG), lumbar hardware Have you had any close contact with No someone diagnosed with COVID-19? Marital Status Lives With spouse,family Prior Living Arrangements House Number of Floors (Floors) One Floor Support System Spouse Does the Patient Have Assistance After Yes Surgery Patient Discharge Plan Description Return Home Comment Pt advised 3-5 day length of stay per surgeon Feels Safe in Current Environment Yes Been Physically Hurt or Threatened By a No Person in Current Environment Do you have thoughts of harming yourself None or others? Are you currently considering suicide? No Do you have a plan to hurt yourself or No Plan others? Do You Have Any Spiritual Beliefs That No May Affect Your HC Choices? Do You Have Any Cultural Practices That No May Affect Your HC Choices? Who Can We Speak to About Patient's Care Family, friends Identifying Code for Release of Patient Declines to issue Information Health Care Proxy/Next of Kin Essence () Health Care Proxy or [phone] Emergency Contact Name Essence () Emergency Contact or [phone] Advance Directives? Yes Advance Directives on File Yes Power of Printing Sales Representative Yes Power of Printing Sales Representative Name Essence Skelton () Power of Printing Sales Representative PAC Instructions Durable medical equipment, Medications to take/avoid, Nasal antibiotic,No ETOH/ petroleum product on skin DOS, NPO,Post-op transportation,Pre -surgical wash,Sensory aids, Sturdy shoes/comfortable clothes,Do not bring valuables and remove jewelry
[2020-03-09 12:12] LABS: Creatine Kinase 1082 U/L (55-170)
--- NOTE | 2020-03-09 12:40 | PC.NURSE ---
1230: Troponin level repeat critical value 3.69, Dr. Briones made aware. Patient resting in bed, no C/O of chest pain, SOB, or dizziness. Alert, oriented and pleasant. at bedside providing supportive care. VSS. No C/O lower back pain, log rolling while in bed, for inspection and dressing change. Dressing changed this am, small amount of drainage noted. No further drainage on reassessment. SCDs in place continuously. Call light within reach.
[2020-03-09 12:48] VITALS: BP 102/54; PULSE 58; RESP 18; TEMP 36.6; O2SAT 93
[2020-03-09 13:01] LABS: CKMB % Relative Index 3.7 % (1.5-5.0)
--- NOTE | 2020-03-09 13:21 | P.DS_ITS ---
History of Present Illness History of Present Illness Date Patient Seen: 03/08/20 Chief complaint: Translaminar Interbody Fusion/Laminotomy Narrative: See separate scanned H&P written by Dr. Tolentino of orthopedic surgery. Consult H&P written by Yuridia LUNA: Clary Skelton is a 74-year-old male with a history of coronary artery disease, CABG in 1996, multiple PCTIs with stent placement developed chest pain in the evening tonight. He is currently patient of Dr. Triana, orthopedic surgery after having gone an L3-4 Postero-lateral and posterior interbody fusion on March 08, 2020. The patient stated that he developed chest pain 20 minutes after having taken a Vicodin. He is unable to take oxycodone due to an allergy. He stated it started midsternal, then radiated to his left arm and then to his neck and jaw. It took 3 nitros to resolve the pain and after the 3rd nitro glycerin and several minutes his pain was now rated as a 0. He denies diaphoresis, headache, chills or fever, nausea or vomiting, dysuria, diarrhea or constipation. He does state he has a murmur. He was evaluated by cardiology in August of this year and they were concerned about a reversible defect with complete ramus occlusion. In their notes they concluded that if he develops limiting angina to consider revascularization with the [place] left circumflex artery though they stated that the targets were poor. He also had an echocardiogram at that time which indicated and EF of 55-60%. P atient states a strong family history of heart disease on both sides of his family. EKG was done and indicated possible left atrial enlargement with a left bundle branch block not seen on previous EKG done on 02/20/2020. Troponin was ordered and is positive at 0.210 with a total creatinine kinase of 1199 and a CK-MB of 2.9. Patient's temperature is 97.1?, blood pressure 130/68, heart rate 77, r espiratory rate 20, at the time the vitals his pain intensity was 7, oxygen saturation 95% on room air, he weighs 88.2 kg with a BMI of 33.4. Discharge Providers Provider Date of admission: 03/08/20 06:10 Discharge Date: 03/09/20 Primary care physician: Tony Espinal MD Consults: 03/04/20 13:39 Consult to Respiratory Therapy Evaluate & Treat Comment: INPT 03/08/20 Untreated KARINA, refuses CPAP Physician Instructions: Evaluate and treat 03/08/20 07:17 Consult to Respiratory Therapy Evaluate & Treat Comment: Physician Instructions: Evaluate and treat 03/08/20 12:37 Consult to Occupational Therapy Evaluate & Treat Comment: Physician Instructions: Evaluate and treat Consult to Physical Therapy Evaluate & Treat Comment: Physician Instructions: Evaluate and Treat 03/08/20 23:24 Consult to Hospitalist Service Routine Comment: Consulting Provider: Yuridia Moreno Reason for consultation: chest pain Discharge provider: Edith Briones DO Summary Hospital Course Discharge Diagnosis: 1. Acute STEMI, not present on admission. Active. 2. Elective lumbar laminectomy and fusion of L3 through S1, present on admission. Active. 3. Hypertension, chronic, present on admission. Stable. 4. Hyperlipidemia, chronic, present on admission. Stable. Hospital Course: Sandip Skelton is a 74-year-old male with a past medical history significant for coronary artery disease status post multiple PCI with stenting x3 and subsequent CABG x 4 vessel grafts in 1996 who was admitted following an elective lumbar laminectomy and fusion L3-S1. Medicine team was consulted for acute postoperative chest pain. 1. Acute STEMI, not present on admission. Active. -Patient developed substernal chest pain that radiated to his jaw and down his left arm postoperatively. Patient received sublingual nitroglycerin x3 doses with resolution of chest pain after 3rd dose. Patient remains chest pain free. -Patient has a history of coronary artery disease status post multiple PCI with stenting x3 and subsequent CABG x 4 vessel grafts in 1996 with most recent catheterization unchanged with evidence of RCA graft occluded, occluded LCX and RI, 99% mid LAD, 85% PD, 80% RCA vein graft, occluded RI graft, and LCX and PINEDA grafts patent. -EKG demonstrated sinus rhythm with new left bundle branch block since previous EKG 02/20/2020. -Initial troponin 0.210. Troponin trended up with most recent 3.690. -Started aspirin 81 mg daily in addition you other cardiac medications including amlodipine 5 mg daily at bedtime, atorvastatin 80 mg daily, isosorbide 120 mg daily, metoprolol tartrate 25 mg twice daily and ranolazine 1000 mg twice daily. -Limited echocardiogram to assess wall motion and LV systolic function which demonstrated normal sinus rhythm, normal LV size, wall thickness, wall motion and LV systolic function with EF 50-55%, aortic valve leaflets are moderately thickened and calcified, moderate aortic stenosis and compared to prior study 02/27/2020 no changes have occurred. -Consulted Cardiology, Dr. Dickinson, who recommends heparinization and transferred to [facility] for monitoring and attempt at revascularization of RCA graft. Started cardiac heparin gtt. Discussed case with hospitalist Dr. Gonzalez at [facility] who accepts transfer for higher level of care. 2. Elective lumbar laminectomy and fusion of L3 through S1, present on admission. Active. -Continued postoperative and pain management per Orthopedic surgery. Orthopedic surgery cleared patient to have heparinization and revascularization if necessary. Continued to monitor closely for dural bleed. 3. Hypertension, chronic, present on admission. Stable. -Continue home dose of amlodipine 5 mg daily at bedtime and metoprolol tartrate 25 mg twice daily. 4. Hyperlipidemia, chronic, present on admission. Stable. -Continue home atorvastatin 80 mg daily at bedtime. Exam Vital Signs (past 8 hours): - 03/09/20 07:34 03/09/20 12:48 Temperature 98.7 F 97.9 F Pulse Rate 69 58 L Respiratory Rate 19 18 Blood Pressure 115/63 102/54 L Pulse Oximetry 94 93 Oxygen Delivery Method Room Air Oxygen Flow Rate 0 Narrative Exam Narrative: General: Elderly male lying in bed and in no acute distress, well-developed, well-nourished, appropriately interactive. HEENT: Normocephalic, atraumatic. External ears without defect. Pupils equal, round, and reactive to light. Anicteric sclerae, moist conjunctivae, and no lid lag. Oropharynx free of erythema and cobble stoning with moist mucosa. Neck: Supple with full range of motion. No jugular venous distension. No lymphadenopathy or thyromegaly. Cardiovascular: Regular rate and rhythm without murmurs, rubs, or gallops appreciated. Pulmonary: Clear to auscultation bilaterally without crackles, wheezes, or rho nchi. Normal respiratory effort with no use of accessory muscles. Abdomen: Soft, bowel sounds present, nontender, nondistended. No hepatosplenomegaly or masses appreciated. Extremities: No clubbing or cyanosis. Trace bipedal edema. Back: Dressing in place C/D/I. Skin: Normal temperature, turgor, and texture; no rash, ulcers, or subcutaneous nodules appreciated. Scattered bruising on upper arms. Neurological: Cranial nerves grossly intact. Psychiatric: Normal mood and affect. Alert and oriented to person, place, and time. Objective Labs Result Diagrams: 03/09/20 05:55 03/09/20 05:55 Labs: Laboratory Results - last 24 hr 03/08/20 03/09/20 03/09/20 23:40 05:55 05:55 WBC 14.5 H RBC 3.19 L Hgb 10.6 L Hct 31.4 L MCV 98.3 MCH 33.2 MCHC 33.8 RDW 14.0 Plt Count 193 Neut % (Auto) 89.4 H Lymph % (Auto) 5.1 L [place] % (Auto) 5.5 Eos % (Auto) 0.0 L Baso % (Auto) 0.0 Neut # (Auto) 45131 H Lymph # (Auto) 700 L [place] # (Auto) 800 Eos # (Auto) 0 Baso # (Auto) 0 Sodium 136 L Potassium 4.9 Chloride 103 Carbon Dioxide 28 BUN 29 H Creatinine 1.37 H Estimated GFR 50.5 L BUN/Creatinine Ratio 21.2 Glucose 127 H Calcium 8.4 Magnesium 2.1 Total Creatine Kinase 1199 H 1024 H CK-MB (CK-2) 52.90 H 40.30 H CK-MB (CK-2) Rel Index 4.4 3.9 Troponin I 0.210 H* 1.020 H* 03/09/20 11:52 WBC RBC Hgb Hct MCV MCH MCHC RDW Plt Count Neut % (Auto) Lymph % (Auto) [place] % (Auto) Eos % (Auto) Baso % (Auto) Neut # (Auto) Lymph # (Auto) [place] # (Auto) Eos # (Auto) Baso # (Auto) Sodium Potassium Chloride Carbon Dioxide BUN Creatinine Estimated GFR BUN/Creatinine Ratio Glucose Calcium Magnesium Total Creatine Kinase 1082 H CK-MB (CK-2) 40.00 H CK-MB (CK-2) Rel Index 3.7 Troponin I 3.690 H* Discharge Plan Discharge Plan Disposition: Xfer Acute [facility] Discharge orders & Medications Follow up/Referrals: Tony Espinal MD [Primary Care Provider] - Discharge Data Primary Care Provider: Tony Espinal
[2020-03-09 13:31] VITALS: BP 113/61; PULSE 62; RESP 16; O2SAT 93
[2020-03-09 13:32] LABS: INR 1.2 (0.9-1.3); Prothrombin Time 13.4 SECONDS (10.1-12.7)
[2020-03-09 13:34] LABS: PTT Partial Thromboplastin Tim 25 SECONDS (26.4-36.2)
[2020-03-09] MEDS: HEPARIN DRIP 25,000 UNIT/500 ML IV.SOLN 21.185 UNIT IV (13:51)
--- NOTE | 2020-03-09 14:11 | PC.NURSE ---
Addendum entered by Azalia Covarrubias R.N. 03/09/20 15:27: Pt left unit at 1527 via [facility] transport. family members at bedside took personal belongings and stated they had everything. Pt left with right arm PIV with heparin infusion drip. Urinary catheter left in place. Addendum entered by Azalia Covarrubias R.N. 03/09/20 15:14: report given to [facility] transport and 1510. Addendum entered by Azalia Covarrubias R.N. 03/09/20 14:50: Called report to AMADEO Severino at [facility] at 1439. No further voiced concerns. Addendum entered by Azalia Covarrubias R.N. 03/09/20 14:19: Correction to below. Initial dose of Heparin infusion started at 1351 not 1451. Original Note: Day Shift- Heparin Infusion initially started at 21.2mls/hr based on starting at 12units/kg/hr with weight of 88.2kg at 1451. Reviewing policy/protocol, max is 20mls/hr. Therefore dose changed at 1405 and decreased to 20mls/hr. Also verified with Deepika in pharmacy and AMADEO Dasilva.
== END 2020-03-09 15:27 | disposition short-term general hospital (02) | DRG 453 ==
PROVIDERS: Internal Medicine; Nurse Practitioner Family; Admitting Provider Orthopaedic Surgery Orthopaedic Surgery of the Spine; PCP Internal Medicine; Referring Provider Orthopaedic Surgery Orthopaedic Surgery of the Spine; Visit Provider Orthopaedic Surgery Orthopaedic Surgery of the Spine
PROC: 0SG00AJ Fusion of Lumbar Vertebral Joint with Interbody Fusion Device, Posterior Approach, Anterior Column, Open Approach (ICD-10-PCS; principal; 2020-03-08 07:45)
DX: M47.26 Other spondylosis with radiculopathy, lumbar region (principal); I21.3 ST elevation (STEMI) myocardial infarction of unspecified site; I42.0 Dilated cardiomyopathy; M96.0 Pseudarthrosis after fusion or arthrodesis; T84.038A Mechanical loosening of other internal prosthetic joint, initial encounter; M48.061 Spinal stenosis, lumbar region without neurogenic claudication; M47.27 Other spondylosis with radiculopathy, lumbosacral region; M48.07 Spinal stenosis, lumbosacral region; I20.8 Other forms of angina pectoris; E66.9 Obesity, unspecified; I10 Essential (primary) hypertension; E78.5 Hyperlipidemia, unspecified; G47.33 Obstructive sleep apnea (adult) (pediatric); Z68.33 Body mass index [BMI] 33.0-33.9, adult; Z95.1 Presence of aortocoronary bypass graft; Z11.59 Encounter for screening for other viral diseases
CPT/HCPCS: 36415; 72100; 76000; 80048; 82550; 82553; 83735; 84484; 85025; 85610; 85730; 87635; 93005; 93010; 93307; 97161; 97530; C1776; C9290; J0330; J0690; J1100; J1170; J1644; J2250; J2405; J2704; J3010